=== PATIENT | male | born 1955 | race Caucasian/White ===

== ENCOUNTER 2016-09-22 21:26 | Emergency (ER) | payer BC, OTHER ==
[~2016-09-22] VITALS: Ht 193 cm; Wt 140.2 kg
[2016-09-22 21:30] VITALS: BP_SYST 155
--- NOTE | 2016-09-22 21:30 | NUR ---
Patient to ER bed 8 to gown for evaluation. Side rails up. Report given to MANUEL Chow.
--- NOTE | 2016-09-22 21:32 | NUR ---
Pt brought in by in stable condition. Pt able to ambulate to bed 8. Pt c/o right shoulder pain 10/10 s/p mechanical trip and fall onto the curb at 1800 this evening. Pt stated that he landed straight onto his right shoulder. Pt decreased ROM to right shoulder. Cap refill <2 sec. Pt admitted to drinking 2 beers prior to arrival. -KO -sob -chest pain. No acute distress noted at this time, will continue to monitor Addendum: 09/22/16 at 2159 by [email or web address] Obvious deformity noted to right shoulder
--- NOTE | 2016-09-22 21:51 | NUR ---
ER at bedside examining patient.
[2016-09-22] MEDS ORDERED: MORPHINE 4 MG/ML INJ. SYRINGE IVP ONE (22:00)
[2016-09-22] MEDS ORDERED: DIPHENHYDRAMINE INJ 50 MG/ML VIAL IVP ONE (22:00)
[2016-09-22 23:06] VITALS: BP_SYST 124
--- NOTE | 2016-09-22 23:06 | NUR ---
Patient given written and verbal discharge instructions and verbalizes understanding. ER MD Madrigal discussed with patient the results and treatment provided. Given copies of tests performed in ER. Patient in stable condition. ID arm band removed. IV catheter removed intact and dressing applied, no active bleeding. Rx of Soma, Ibuprofen 800 and Gilbert 5-325 given. Patient educated on pain management and to follow up with PMD. Pain Scale 3/10. Opportunity for questions provided and answered.
== END 2016-09-22 23:06 | disposition home or self-care (01) ==
LOC: SED 21:26
DX: S42.291A Other displaced fracture of upper end of right humerus, initial encounter for closed fracture (principal); Z88.0 Allergy status to penicillin; W01.198A Fall on same level from slipping, tripping and stumbling with subsequent striking against other object, initial encounter; Y93.89 Activity, other specified; Y99.8 Other external cause status; Y92.89 Other specified places as the place of occurrence of the external cause
CPT/HCPCS: 73030; 96374; 96375; 99284; J1200; J2270

== ENCOUNTER 2021-08-15 15:12 | Emergency (ER) | payer BC, OTHER, MEDICAID ==
[~2021-08-15] VITALS: Ht 190.5 cm; Wt 136.1 kg
[2021-08-15] MEDS ORDERED: HYDROcodone/ACETAMIN 10-325 MG TAB PO ONE (15:30)
[2021-08-15 16:15] LABS: BASOPHILS % (AUTO) 0.3 % (0.0-2.0); EOSINOPHILS % (AUTO) 0.2 % (0.0-4.0); HEMATOCRIT 44.2 % (36-54); HEMOGLOBIN 14.6 g/dL (14.0-18.0); LYMPHOCYTES # (AUTO) 1.6 K/uL (1.0-5.5); LYMPHOCYTES % (AUTO) 13.2 % (20.5-51.5); MEAN CORPUSCULAR HEMOGLOBIN 28 pg (27-31); MEAN CORPUSCULAR HGB CONC 33 % (32-36); MEAN CORPUSCULAR VOLUME 86 fL (79.0-98.0); MONOCYTES # (AUTO) 0.4 K/uL (0.0-1.0); MONOCYTES % (AUTO) 3.3 % (1.7-9.3); NEUTROPHILS # (AUTO) 9.8 K/uL (1.8-7.7); PLATELET COUNT (AUTO) 144 K/uL (130-430); RED BLOOD CELL COUNT(AUTO) 5.16 MIL/uL (4.2-6.2); RED CELL DISTRIBUTION WIDTH 13.5 % (9.0-15.0); WHITE BLOOD COUNT (AUTO) 11.8 K/uL (4.8-10.8)
[2021-08-15] MEDS ORDERED: MORPHINE 4 MG INJ. 4 MG/ML VIAL IVP PRN (16:15)
[2021-08-15 16:22] LABS: PROTHROMBIN TIME 10.8 SECS (9.5-12.5)
[2021-08-15 16:34] LABS: CALCIUM 8.7 mg/dL (8.4-11.0); CREATININE 0.9 mg/dL (0.55-1.30); POTASSIUM 3.9 mmol/L (3.5-5.1)
[2021-08-15 16:40] LABS: TOTAL BILIRUBIN 0.7 mg/dL (0.0-1.0)
--- NOTE | 2021-08-15 16:55 | NUR ---
patient will be tranferred to [facility] under dr. awlker. ETA 3 hours. family updated on plan of care patient receieved pain medication at this time.
[2021-08-15] MEDS ORDERED: MORPHINE 4 MG INJ. 4 MG/ML VIAL IM ONE (17:00)
--- NOTE | 2021-08-15 19:09 | NUR ---
RECEIVED REPORT FROM DAYSHIFT NURSE, AWAITING DISPOSITION. PT IN BED IN SUPINE POSITION, PT SPOUSE REQUESTING TRANSFER TO DIFFERENT FACILITY. MADE AWARE. WILL CONTINUE TO MONITOR CLOSELY
--- NOTE | 2021-08-15 19:42 | NUR ---
PT REQUESTING TO TRANSFER TO ANOTHER FACILITY FOR ORTHO SURGERY, NOTIFIED PT AND SPOUSE THAT THE FACILITY REQUESTED IS UNABLE TO ACCODATE AT THIS TIME. MD INFORMED PT AND SPOUSE OF POSSIBLE RISKS AND BENEFITS OF HIS LEAVING TO GO TO ANOTHER FACILITY TO RECIEVE TREATMENT AND REQUIRED HIP SURGERY. PT GIVEN OPPORTUNITY TO TALK IT OVER WITH SPOUSE, AND MD ANSWERED ALL QUESTIONS. PT VERBALIZED UNDERSTANDING.PT SIGNED AMA FORM, AND PROVIDED COPY. PT PROVIDED WITH COPY OF XRAY RESULTS. PT SPOUSE STATED SHE WILL TAKE HIM TO PREFERRED FACILITY FOR HIP SURGERY.
--- NOTE | 2021-08-15 20:11 | NUR ---
PT PROVIDED WITH DISCHARGE INSTRUCTIONS AND ENCOURAGED TO GO DIRECTLY TO PREFERRED FACILITY FOR TREATMENT. IV REMOVED FROM LEFT HAND, CATHETER INTACT. PT DISCHARGED IN STABLE CONDITION, PT UNABLE TO AMBULATE. ACCOMPANIED PT IN GURNEY TO CAR AND ASSISTED PT WITH SECURITY INTO VEHICLE. PT SPOUSE WILL DRIVE TO ANOTHER FACILITY.
[2021-08-15 20:50] VITALS: BP_SYST 165
== END 2021-08-15 20:30 | disposition left against medical advice (07) ==
LOC: SED 15:12
DX: S72.142A Displaced intertrochanteric fracture of left femur, initial encounter for closed fracture (principal); I10 Essential (primary) hypertension; Z88.0 Allergy status to penicillin; W01.198A Fall on same level from slipping, tripping and stumbling with subsequent striking against other object, initial encounter; Y93.89 Activity, other specified; Y92.89 Other specified places as the place of occurrence of the external cause; Y99.8 Other external cause status
CPT/HCPCS: 36415; 71045; 72170; 80053; 85025; 85610; 85730; 86886; 86900; 86901; 93005; 96372; 96374; 99285; J2270

== ENCOUNTER 2021-12-01 17:46 | Inpatient (IN) | payer BC, OTHER, MEDICAID ==
[~2021-12-01] VITALS: Ht 190.5 cm; Wt 129.8 kg
[2021-12-01 17:54] VITALS: BP_SYST 113
--- NOTE | 2021-12-01 18:13 | NUR ---
COVID SWAB DONE AND SENT TO LAB
--- NOTE | 2021-12-01 18:35 | NUR ---
Patient transported to radiology via WC, accompanied by STAFF.
[2021-12-01] MEDS ORDERED: LOSA50TA3 PO (18:44)
[2021-12-01] MEDS ORDERED: METO50TA7 PO (18:44)
[2021-12-01] MEDS ORDERED: WARF4TAB72 PO (18:44)
--- NOTE | 2021-12-01 18:50 | NUR ---
Placed in room 4 . Placed on cardiac nurse practitioner, blood pressure machine and pulse oximeter. To gown for exam. Side rails up. Report given to MANUEL TAVAREZ.
[2021-12-01 19:28] LABS: BASOPHILS # (AUTO) 0.1 K/uL (0.0-0.2); BASOPHILS % (AUTO) 1.7 % (0.0-2.0); EOSINOPHILS # (AUTO) 0.1 K/uL (0.0-0.4); HEMATOCRIT 42.4 % (36-54); HEMOGLOBIN 14.3 g/dL (14.0-18.0); LYMPHOCYTES # (AUTO) 2.3 K/uL (1.0-5.5); LYMPHOCYTES % (AUTO) 36.6 % (20.5-51.5); MEAN CORPUSCULAR HEMOGLOBIN 28 pg (27-31); MEAN CORPUSCULAR HGB CONC 34 % (32-36); MEAN CORPUSCULAR VOLUME 84 fL (79.0-98.0); MONOCYTES # (AUTO) 0.3 K/uL (0.0-1.0); MONOCYTES % (AUTO) 4.8 % (1.7-9.3); NEUTROPHILS # (AUTO) 3.6 K/uL (1.8-7.7); NEUTROPHILS % (AUTO) 55.9 % (40.0-70.0); PLATELET COUNT (AUTO) 109 K/uL (130-430); RED BLOOD CELL COUNT(AUTO) 5.06 MIL/uL (4.2-6.2); RED CELL DISTRIBUTION WIDTH 14.2 % (9.0-15.0); WHITE BLOOD COUNT (AUTO) 6.4 K/uL (4.8-10.8)
--- NOTE | 2021-12-01 19:30 | NUR ---
PT SENT BY PCP FOR UNCONTROLLED AFIB AND ADMISSION PT DENIES CP AT THIS TIME. CONNECTED TO MONITOR, SHOWING AFIB RATE OF 110S. RESP E/O. SKIN WDL. GCS15. AOX4.
[2021-12-01 19:41] LABS: ANION GAP 8 (5-15); CALCIUM 9.2 mg/dL (8.4-11.0); CHLORIDE 98 mmol/L (98-107); CREATININE 0.97 mg/dL (0.55-1.30); GLUCOSE 104 mg/dL (70-99); SODIUM SERUM 134 mmol/L (136-145); UREA NITROGEN, BLOOD 8 mg/dL (8-21)
[2021-12-01 19:50] LABS: ALANINE AMINOTRANSFERASE 10 U/L (12-78); ALBUMIN 3.6 g/dL (3.4-4.8); ASPARTATE AMINOTRANSFERASE 22 U/L (10-37); TOTAL BILIRUBIN 0.8 mg/dL (0.0-1.0)
[2021-12-01 19:53] LABS: GFR AFRICAN AMERICAN 100 mL/min (>90)
[2021-12-01 20:00] LABS: INR 1.7 (0.80-1.20); PROTHROMBIN TIME 17.2 SECS (9.5-12.5)
[2021-12-01] MEDS ORDERED: ASPIRIN 81 MG TAB.CHEW PO ONE (20:15)
--- NOTE | 2021-12-01 20:35 | NUR ---
Admit bed requested Patient will be admitted to care of Dr. Lopze Admitted to Telemetry Unit Diagnosis New Onset Atrial Flutter Inpatient (Yes or No) yes Observation (Yes or No) no Orientation concerns or request close to nursing station (Yes or No) no Covid Status pending On vent or bipap no Isolation requirements no Needs a sitter no From Home (Yes or if No enter name of facility) yes Requires Dialysis (Yes or No) no Med Rec Completed (Yes of No) yes
[2021-12-01] MEDS ORDERED: ASPIRIN 81 MG TAB.CHEW ONE (23:01)
--- NOTE | 2021-12-01 23:21 | NUR ---
REPORT TO NIYAH JACKSON BED 109A
[2021-12-01 23:28] VITALS: BP_SYST 133
--- NOTE | 2021-12-01 23:30 | NUR ---
PT ADMITTED TO TELE. PT AOX4 ABLE TO MAKE NEEDS KNOWN. RR EVEN AND UNLABORED ON RA. LUNGS SOUND CLEAR. BOWEL SOUNDS ACTIVE. PT ABLE TO AMBULATE WITH FWW. SKIN INTACT. PT EDUCATED TO USE CALL LIGHT IF HE NEEDS ASSISTANCE. BED ALARM ON. CALL LIGHT WITHIN REACH. WILL CONTINUE TO MONITOR.
[2021-12-02] VITALS: BP_SYST 133
[2021-12-02] MEDS ORDERED: WARFARIN SODIUM 2 MG TABLET PO ONE (00:15)
[2021-12-02] MEDS: METOPROLOL TARTRATE 25 MG TABLET PO SCH ×3 (00:32→21:13)
--- NOTE | 2021-12-02 03:45 | NUR ---
Consultation Paged Reason for Consultation: New Onset Atrial Flutter Was consult called: Y Person who was notified: Anh Consulting Physician: Dr. Benitez Ordering Physician: Dr. Lpoez
[2021-12-02 07:15] LABS: BASOPHILS % (AUTO) 0.6 % (0.0-2.0); EOSINOPHILS # (AUTO) 0.1 K/uL (0.0-0.4); EOSINOPHILS % (AUTO) 1.4 % (0.0-4.0); HEMATOCRIT 39.5 % (36-54); HEMOGLOBIN 13.5 g/dL (14.0-18.0); LYMPHOCYTES # (AUTO) 2.9 K/uL (1.0-5.5); MEAN CORPUSCULAR HEMOGLOBIN 29 pg (27-31); MEAN CORPUSCULAR HGB CONC 34 % (32-36); MEAN CORPUSCULAR VOLUME 84 fL (79.0-98.0); MONOCYTES # (AUTO) 0.6 K/uL (0.0-1.0); MONOCYTES % (AUTO) 8.5 % (1.7-9.3); NEUTROPHILS # (AUTO) 3.8 K/uL (1.8-7.7); NEUTROPHILS % (AUTO) 50.5 % (40.0-70.0); PLATELET COUNT (AUTO) 97 K/uL (130-430); RED BLOOD CELL COUNT(AUTO) 4.71 MIL/uL (4.2-6.2); RED CELL DISTRIBUTION WIDTH 14.5 % (9.0-15.0); WHITE BLOOD COUNT (AUTO) 7.5 K/uL (4.8-10.8)
[2021-12-02 07:55] VITALS: BP_SYST 136
--- NOTE | 2021-12-02 07:55 | NUR ---
INITIAL ROUNDS Received pt AAOx4, no s/s resp distress, no c/o palpitations or chest pain, no c/o pain or discomfort. Plan of care for the day reviewed with pt-pt verbalized his understanding. Pt stated he still uses his FWW due to recent left hip surgery. Pain management, disease process, skin and safety discussed-teach back done.
[2021-12-02 07:56] LABS: ALBUMIN 3.1 g/dL (3.4-4.8); CALCIUM 8.4 mg/dL (8.4-11.0); CREATININE 0.77 mg/dL (0.55-1.30); POTASSIUM 3.9 mmol/L (3.5-5.1)
[2021-12-02 08:01] LABS: INR 1.7 (0.80-1.20); PROTHROMBIN TIME 17.2 SECS (9.5-12.5)
[2021-12-02 16:55] VITALS: BP_SYST 135
[2021-12-02] MEDS: WARFARIN SODIUM 2 MG TABLET PO SCH (17:59)
--- NOTE | 2021-12-02 19:15 | NUR ---
CLOSING NOTE Pt sitting up in bed with no s/s resp distress, no c/o palpitations or chest pain, no c/o pain or discomfort. No changes, needs met, call light within reach.
[2021-12-02 20:00] VITALS: BP_SYST 141
[2021-12-02 22:40] LABS: BILIRUBIN,URINE NEGATIVE (NEGATIVE); BLOOD, URINE NEGATIVE (NEGATIVE); CLARITY/URINE CLEAR (CLEAR); GLUCOSE,URINE NEGATIVE (NEGATIVE); KETONES,URINE NEGATIVE (NEGATIVE); LEUKOCYTE ESTERASE ,URINE NEGATIVE (NEGATIVE); NITRITE, URINE NEGATIVE (NEGATIVE); PH,URINE 6.5 (5.0-8.0); PROTEIN URINE NEGATIVE (NEGATIVE); UROBILINOGEN,URINE 0.2 (0.2-1.0)
[2021-12-02 22:50] LABS: COLOR,URINE STRAW (YELLOW)
[2021-12-03] VITALS: BP_SYST 137
[2021-12-03 08:00] VITALS: BP_SYST 119
[2021-12-03] MEDS: METOPROLOL TARTRATE 25 MG TABLET PO SCH (08:50)
[2021-12-03 09:59] LABS: INR 1.9 (0.80-1.20); PROTHROMBIN TIME 19.3 SECS (9.5-12.5)
[2021-12-03 12:00] VITALS: BP_SYST 126
[2021-12-03 16:00] VITALS: BP_SYST 122
[2021-12-03 17:02] VITALS: BP_SYST 122
[2021-12-03] MEDS: WARFARIN SODIUM 2 MG TABLET PO SCH (17:15)
== END 2021-12-03 17:23 | disposition home or self-care (01) | DRG 310 ==
LOC: SED 17:46 → STU 20:15
PROVIDERS: ADMIT Family Medicine; ATTEND Family Medicine
DX: I48.92 Unspecified atrial flutter (principal); E66.01 Morbid (severe) obesity due to excess calories; I10 Essential (primary) hypertension; I48.91 Unspecified atrial fibrillation; Z96.611 Presence of right artificial shoulder joint; Z96.652 Presence of left artificial knee joint; Z20.822 Contact with and (suspected) exposure to COVID-19; Z79.899 Other long term (current) drug therapy; Z86.718 Personal history of other venous thrombosis and embolism; Z87.81 Personal history of (healed) traumatic fracture; Z79.01 Long term (current) use of anticoagulants; Z68.35 Body mass index [BMI] 35.0-35.9, adult
CPT/HCPCS: 36415; 71045; 80053; 81003; 83880; 84484; 85025; 85610-TC; 85730-TC; 93005; 93306; 99285; G0378

== ENCOUNTER 2022-03-01 16:14 | Inpatient (IN) | payer OTHER, MEDICAID ==
[~2022-03-01] VITALS: Ht 188 cm; Wt 116.6 kg
[~2022-03-01 16:14] MED LIST: LOSA50TA3 PO; METO50TA7 PO; WARF4TAB72 PO
[2022-03-01 17:22] VITALS: BP_SYST 134
[2022-03-01] MEDS ORDERED: CEFEPIME 2 GM in D5W 100 ML IV ONE (19:00)
[2022-03-01 19:35] LABS: BASOPHILS # (AUTO) 0.1 K/uL (0.0-0.2); BASOPHILS % (AUTO) 1.3 % (0.0-2.0); EOSINOPHILS % (AUTO) 0.2 % (0.0-4.0); HEMATOCRIT 34.2 % (36-54); HEMOGLOBIN 11.1 g/dL (14.0-18.0); LYMPHOCYTES # (AUTO) 0.6 K/uL (1.0-5.5); LYMPHOCYTES % (AUTO) 8.1 % (20.5-51.5); MEAN CORPUSCULAR HEMOGLOBIN 27 pg (27-31); MEAN CORPUSCULAR HGB CONC 33 % (32-36); MEAN CORPUSCULAR VOLUME 82 fL (79.0-98.0); MONOCYTES # (AUTO) 0.6 K/uL (0.0-1.0); MONOCYTES % (AUTO) 7.3 % (1.7-9.3); NEUTROPHILS # (AUTO) 6.4 K/uL (1.8-7.7); NEUTROPHILS % (AUTO) 83.1 % (40.0-70.0); PLATELET COUNT (AUTO) 130 K/uL (130-430); RED BLOOD CELL COUNT(AUTO) 4.19 MIL/uL (4.2-6.2); RED CELL DISTRIBUTION WIDTH 17.4 % (9.0-15.0); WHITE BLOOD COUNT (AUTO) 7.7 K/uL (4.8-10.8)
[2022-03-01] MEDS ORDERED: ONDANSETRON 4 MG ODT TAB PO ONE (19:45)
[2022-03-01 20:03] LABS: ALBUMIN 3.2 g/dL (3.4-4.8); CALCIUM 9.5 mg/dL (8.4-11.0); CREATININE 6.9 mg/dL (0.55-1.30); POTASSIUM 3.2 mmol/L (3.5-5.1)
--- NOTE | 2022-03-01 20:10 | NUR ---
67 y/o M, ambulatory from home with c/o known hip infection currently on cefepime and daptomycin. Pt states he's lost his insurance and has been unable to take last dose of his antibiotics and was sent here for admission to continue antibiotics. Reports nausea and weakness. [facility] diabetes. Addendum: 03/02/22 at 0557 by [email or web address] Left hip*
--- NOTE | 2022-03-01 20:50 | NUR ---
ADMISSION ORDERS PLACED
--- NOTE | 2022-03-01 23:12 | NUR ---
COVID collected and sent.
--- NOTE | 2022-03-01 23:45 | NUR ---
Pt resting in bed, no acute signs of distress. Breathing adequately on RA. VSS. at bedside.
--- NOTE | 2022-03-01 23:59 | NUR ---
CHARTED ON WRONG PT
[2022-03-02] MEDS ORDERED: cefOXitin SODIUM 2 GM/VIAL (MEFOXIN) ONE (05:51)
--- NOTE | 2022-03-02 05:58 | NUR ---
Admit bed requested Patient will be admitted to care of . Admitted to MED SURG unit. Diagnosis: RENAL FAILURE Inpatient (Yes or No) Y Observation (Yes or No) Y Orientation concerns or request close to nursing station (Yes or No) N Covid Status: NEGATIVE From Home (Yes or if No enter name of facility) Y Requires Dialysis (Yes or No) Y
--- NOTE | 2022-03-02 06:01 | NUR ---
600 ml of urine emptied from FC.
[2022-03-02] MEDS ORDERED: CEFE2PIG2 IV (06:15)
--- NOTE | 2022-03-02 08:16 | NUR ---
COVID TEST SAMPLE OBTAINED/CATALINA TAKEN TO LAB LABELED
--- NOTE | 2022-03-02 09:10 | NUR ---
Patient will be admitted to care of DR DEE. Admitted to unit. Will go to room . Belongings list completed. Complete and up to date summary report printed. SBAR report to be given at bedside TO MANUEL CARDOSO with opportunity for questions.
--- NOTE | 2022-03-02 09:30 | NUR ---
0930: Patient alert and oriented x 3, christianne at bedside with him. Patient to hospital from nursing facility for DE[facility], patient arrived with f/c to gravity, vss, patient has incision on left hip that may be infected, redressed and cleaned, sutures are dry and intact and incision is reddened but not painful. patient has right chest portacath, hemodialysis at bedside and dressing done. will continue to monitor patient. 1200: patient picc line on right forearm redressed at this time.
[2022-03-02] MEDS ORDERED: NEPHROVITE, (FOLIC ACID/VITAMIN B COMP W-C 1 TAB) PO ONE (09:45)
[2022-03-02] MEDS ORDERED: CALCIUM ACETATE 667 MG CAP PO ONE (09:45)
--- NOTE | 2022-03-02 10:09 | NUR ---
Dr. Palacios notified for admission orders.
--- NOTE | 2022-03-02 10:12 | NUR ---
CONSULT NEPHROLOGY ESRD DR LY,SILVIO [phone] S/W [facility] OFFICE
[2022-03-02] MEDS: CALCIUM ACETATE 667 MG CAP PO SCH ×2 (12:00→18:08)
[2022-03-02 14:32] VITALS: BP_SYST 120
[2022-03-02] MEDS: CEFEPIME 2 GM in D5W 100 ML IV SCH (15:00)
[2022-03-02 16:00] VITALS: BP_SYST 168
[2022-03-02 20:00] VITALS: BP_SYST 157
[2022-03-02] MEDS: HEPARIN SODIUM,PORCINE 5,000 UNITS/ML VIAL SUBCUT SCH (21:14)
[2022-03-03 00:30] VITALS: BP_SYST 159
[2022-03-03] MEDS: CALCIUM ACETATE 667 MG CAP PO SCH ×3 (08:33→19:22)
[2022-03-03] MEDS: NEPHROVITE, (FOLIC ACID/VITAMIN B COMP W-C 1 TAB) PO SCH (08:34)
[2022-03-03] MEDS: HEPARIN SODIUM,PORCINE 5,000 UNITS/ML VIAL SUBCUT SCH ×2 (08:35→21:29)
[2022-03-03 08:45] LABS: CALCIUM 9.5 mg/dL (8.4-11.0); CREATININE 6.41 mg/dL (0.55-1.30); POTASSIUM 3.2 mmol/L (3.5-5.1)
--- NOTE | 2022-03-03 09:30 | NUR ---
DR. SOLIS PAGED FOR POTASSIUM 3.2. WAITING FOR CALL BACK
--- NOTE | 2022-03-03 10:41 | NUR ---
DR. SOLIS RETURNED CALL. POTASSIUM 20MEQ PO X 1 ORDERED A THIS TIME
[2022-03-03] MEDS ORDERED: POTASSIUM CHLORIDE 20 MEQ TAB.PRT.SR PO ONE (10:45)
[2022-03-03 14:05] VITALS: BP_SYST 118
[2022-03-03 16:00] VITALS: BP_SYST 123
--- NOTE | 2022-03-03 16:30 | NUR ---
ABDUCTOR PILLOW ORDERED FOR PATIENT AT THIS TIME, SPOKE TO OR AND WILL ADMINISTER ONCE ORDER ENTERED.
--- NOTE | 2022-03-03 16:54 | NUR ---
ABDUCTOR PILLOW AT BEDSIDE WILL ENDORSE TO ONLY PUT ON PATIENT AT NIGHT
[2022-03-03 19:04] VITALS: BP_SYST 156
--- NOTE | 2022-03-03 20:00 | NUR ---
Opening Patient resting in bed, no complaint of pain or sign of distress. Incision to left hip clean and dry, no redness noted, stitches in place. Call light in reach, bed alarm on.
[2022-03-03 20:30] VITALS: BP_SYST 135
[2022-03-04 00:43] VITALS: BP_SYST 148
--- NOTE | 2022-03-04 01:04 | NUR ---
Patient complaining of return of pain after [place]. BP also elevated at 165/87. Informed Dr. Arevalo of patient's BP and report of pain. Received order to increase dose of [place] with one time dose now, and for hydralazine IVP PRN for SBP>160 if BP doesn't come down with pain medication. Addendum: 03/04/22 at 0117 by Jayashree Boudreaux RN Disregard note, should be for different patient.
--- NOTE | 2022-03-04 02:43 | NUR ---
Urine sample collected and sent to lab
[2022-03-04 03:48] LABS: BILIRUBIN,URINE NEGATIVE (NEGATIVE); BLOOD, URINE 3+ (NEGATIVE); COLOR,URINE YELLOW (YELLOW); GLUCOSE,URINE NEGATIVE (NEGATIVE); KETONES,URINE NEGATIVE (NEGATIVE); LEUKOCYTE ESTERASE ,URINE TRACE (NEGATIVE); NITRITE, URINE NEGATIVE (NEGATIVE); PROTEIN URINE 2+ (NEGATIVE); UROBILINOGEN,URINE 0.2 (0.2-1.0)
[2022-03-04 03:49] LABS: CLARITY/URINE HAZY (CLEAR)
[2022-03-04 04:30] LABS: BACTERIA,URINE RARE /HPF (None Seen); WBC,URINE 0-3 /HPF (0-3)
--- NOTE | 2022-03-04 05:18 | NUR ---
Rounds Patient asleep in bed, unlabored breathing on room air. Abductor pillow in place. Joseph catheter in place draining yellow urine. Call light in reach, bed alarm on.
--- NOTE | 2022-03-04 05:54 | NUR ---
CONSULT: CONSULT CALLED FOR LEONA MILLER I SPOKE TO NETTIE GARCIA REASON FOR CONSULT: BLADER MASS REQUESTING CONSULT: DR. BAKER BIZTALK SOFTWARE DEVELOPER PHONE NUMER: [phone]
--- NOTE | 2022-03-04 07:20 | NUR ---
OPENING NOTE RECEIVED SBAR FROM REED OR WIND INSTRUMENT TUNER NURSE. PT IN BED, RESPIRATIONS EVEN, REGULAR, AND UNLABORED. NO COMPLAINT OF PAIN OR DISCOMFORT. BED IS LOCKED AND AT LOW POSITION. WILL CONTINUE TO MONITOR.
[2022-03-04 07:46] LABS: BASOPHILS % (AUTO) 0.2 % (0.0-2.0); HEMATOCRIT 31.5 % (36-54); LYMPHOCYTES # (AUTO) 0.8 K/uL (1.0-5.5); LYMPHOCYTES % (AUTO) 15.6 % (20.5-51.5); MEAN CORPUSCULAR VOLUME 82 fL (79.0-98.0); MONOCYTES # (AUTO) 0.7 K/uL (0.0-1.0); MONOCYTES % (AUTO) 13.3 % (1.7-9.3); NEUTROPHILS # (AUTO) 3.8 K/uL (1.8-7.7); NEUTROPHILS % (AUTO) 70.9 % (40.0-70.0); PLATELET COUNT (AUTO) 109 K/uL (130-430); RED BLOOD CELL COUNT(AUTO) 3.83 MIL/uL (4.2-6.2); RED CELL DISTRIBUTION WIDTH 17.1 % (9.0-15.0); WHITE BLOOD COUNT (AUTO) 5.4 K/uL (4.8-10.8)
--- NOTE | 2022-03-04 07:46 | NUR ---
Closing Patient resting in bed, unlabored breathing on room air, no complaint of pain. Abductor pillow in place throughout night. Endorsed to oncoming nurse.
[2022-03-04 07:53] LABS: ALBUMIN 2.5 g/dL (3.4-4.8); CALCIUM 9.2 mg/dL (8.4-11.0); CREATININE 7.45 mg/dL (0.55-1.30); PHOSPHORUS 4.6 mg/dL (2.7-4.5); POTASSIUM 3.4 mmol/L (3.5-5.1); TOTAL BILIRUBIN 0.7 mg/dL (0.0-1.0)
[2022-03-04 08:00] VITALS: BP_SYST 163
[2022-03-04] MEDS: CALCIUM ACETATE 667 MG CAP PO SCH ×3 (08:00→17:44)
--- NOTE | 2022-03-04 08:15 | NUR ---
PHYSICAL THERAPY EVALUATION WILL HAVE TO BE LATER TODAY OR TOMORROW. PATIENT IS JUST STARTING DIALYSIS TREATMENT. LONG CONVERSATION WITH THE PATIENT REVEALS THAT HE IS ALLOWED TO PERFORM WBAT ON THE LLE. HE IS FOLLOWING POSTERIOR THR PRECAUTIONS. RECENTLY RETURNED HOME FROM SNF. WILL NEED FURTHER PT AND POSSIBLY HOME HEALTH PT.
[2022-03-04] MEDS: NEPHROVITE, (FOLIC ACID/VITAMIN B COMP W-C 1 TAB) PO SCH (09:00)
[2022-03-04] MEDS: HEPARIN SODIUM,PORCINE 5,000 UNITS/ML VIAL SUBCUT SCH (09:00)
[2022-03-04] MEDS ORDERED: HEPARIN SODIUM,PORCINE 5,000 UNITS/ML VIAL ONE (10:13)
[2022-03-04] MEDS ORDERED: HEPARIN SODIUM,PORCINE 5,000 UNITS/ML VIAL MC ONE (10:15)
[2022-03-04 12:00] VITALS: BP_SYST 129
[2022-03-04 12:19] LABS: HEMOGLOBIN 10.4 g/dL (14.0-18.0)
[2022-03-04 12:20] LABS: MEAN CORPUSCULAR HEMOGLOBIN 27 pg (27-31); MEAN CORPUSCULAR HGB CONC 33 % (32-36)
--- NOTE | 2022-03-04 12:30 | NUR ---
lunch patients brought chicken and tortillas for the patient. educated both patient and regarding the indications of proper diet and to not bring outside food for the patient. Also patient gave his untouched lunch to his room mate. Educated patient and his that each patient has own special diet needs and to not provide any food to any other patient. Both patient and verbalized understanding.
[2022-03-04] MEDS: CEFEPIME 2 GM in D5W 100 ML IV SCH (15:52)
[2022-03-04 16:00] VITALS: BP_SYST 155
--- NOTE | 2022-03-04 18:06 | NUR ---
Sutures Removed: Orders received by Dr. Lopez for removal of sutures from left hip THR site. Upon assessment, incision was approximated, with blue sutures intact (17 total). Sutures were removed from incision and upon inspection, 17 discarded sutures were in the suture tray. Site was cleansed with normal saline. Betadine was applied to incision site. Incision site was approximated upon inspection. Attending nurse to cover site with composite/island dressings. Recommend: Apply Betadine to incision site. Cover with composite/island dressings. Perform site care daily, and as needed for dressing soiling or dislodgment. Will inspect site in 3 days to determine if dressing is still needed.
[2022-03-04 18:10] VITALS: BP_SYST 129
--- NOTE | 2022-03-04 18:30 | NUR ---
lowe/ picc line removed for discharge ok per Dr Lopez. both removed with no distress by patient. Patient denies any pain or discomfort
[2022-03-04 19:15] LABS: CHLORIDE,URINE RANDOM 89 mmol/L (55-125)
--- NOTE | 2022-03-04 19:42 | NUR ---
D/C Patient Patient given medication reconciliation form and D/C instructions. Exit Care provided. Patient verbalized understanding. MD discussed with patient the results and treatment provided. Ambulatory with steady gait for discharge to home. Patient in stable condition, ID band removed. IV catheter removed, intact and dressing applied, no active bleeding. Patient educated on pain management. All belongings sent with patient. Patient taken out to awaiting car via wheel chair
== END 2022-03-04 19:42 | disposition home or self-care (01) | DRG 559 ==
LOC: SED 16:14 → SMU 20:38
PROVIDERS: ADMIT Family Medicine; ATTEND Family Medicine
PROC: 5A1D70Z Performance of Urinary Filtration, Intermittent, Less than 6 Hours Per Day (ICD-10-PCS; principal; 2022-03-02)
DX: T84.52XA Infection and inflammatory reaction due to internal left hip prosthesis, initial encounter (principal); N18.6 End stage renal disease; E87.1 Hypo-osmolality and hyponatremia; I12.0 Hypertensive chronic kidney disease with stage 5 chronic kidney disease or end stage renal disease; N17.9 Acute kidney failure, unspecified; D64.9 Anemia, unspecified; Z96.649 Presence of unspecified artificial hip joint; Z20.822 Contact with and (suspected) exposure to COVID-19; Y83.8 Other surgical procedures as the cause of abnormal reaction of the patient, or of later complication, without mention of misadventure at the time of the procedure; Z86.711 Personal history of pulmonary embolism; Z86.718 Personal history of other venous thrombosis and embolism; Z88.0 Allergy status to penicillin; Y92.89 Other specified places as the place of occurrence of the external cause
CPT/HCPCS: 36415; 73502; 76376; 76770; 80048; 80053; 81000; 82435; 82570; 83735; 83970; 84100; 84302; 85025; 87081; 90935; 96365; 99285; J0692; J0694; J1644; J7060

== ENCOUNTER 2022-03-05 16:01 | Inpatient (IN) | payer OTHER, MEDICAID ==
[~2022-03-05] VITALS: Ht 190.5 cm; Wt 115.2 kg
[~2022-03-05 16:01] MED LIST changes: +CEFE2PIG2 IV; -LOSA50TA3 PO
[2022-03-05 16:02] VITALS: BP_SYST 144
--- NOTE | 2022-03-05 16:02 | NUR ---
BROUGHT IN BY [facility], PLACED IN BED #[address] HSU CALLED TO BEDSIDE FOR EVALUATION, REPORT GIVEN TO BEATRICE
--- NOTE | 2022-03-05 16:07 | NUR ---
CODE STROKE INITIATED BY DR HSU.
--- NOTE | 2022-03-05 16:10 | NUR ---
TAKEN TO RADIOLOGY VIA STRETCHER.
--- NOTE | 2022-03-05 16:15 | NUR ---
Triple Lumen CVC placed into Left Jugular by Dr. Salzaar
--- NOTE | 2022-03-05 16:20 | NUR ---
Xray at bedside to confirm CVC placement
[2022-03-05] MEDS ORDERED: iohexoL 300 mgI/mL, 150 ML INFUS..BTL IV ONE (16:23)
--- NOTE | 2022-03-05 16:25 | NUR ---
Labs drawn and sent to lab
[2022-03-05] MEDS ORDERED: KETAMINE HCL 500 MG/10 ML VIAL ONE (17:13)
[2022-03-05] MEDS ORDERED: KETAMINE HCL 500 MG/10 ML VIAL IM ONE (17:45)
[2022-03-05 17:50] LABS: BASOPHILS % (AUTO) 0.1 % (0.0-2.0); HEMATOCRIT 32.4 % (36-54); LYMPHOCYTES # (AUTO) 1.3 K/uL (1.0-5.5); LYMPHOCYTES % (AUTO) 18.7 % (20.5-51.5); MEAN CORPUSCULAR VOLUME 81 fL (79.0-98.0); MONOCYTES # (AUTO) 0.9 K/uL (0.0-1.0); MONOCYTES % (AUTO) 13.6 % (1.7-9.3); NEUTROPHILS # (AUTO) 4.6 K/uL (1.8-7.7); NEUTROPHILS % (AUTO) 67.6 % (40.0-70.0); PLATELET COUNT (AUTO) 86 K/uL (130-430); RED BLOOD CELL COUNT(AUTO) 3.99 MIL/uL (4.2-6.2); RED CELL DISTRIBUTION WIDTH 16.9 % (9.0-15.0); WHITE BLOOD COUNT (AUTO) 6.8 K/uL (4.8-10.8)
[2022-03-05] MEDS ORDERED: MIDAZOLAM HCL 5 MG/5 ML VIAL ONE (17:55)
[2022-03-05] MEDS ORDERED: MIDAZOLAM HCL 5 MG/5 ML VIAL IVP ONE (18:00)
[2022-03-05 18:05] LABS: ANION GAP 13 (5-15); CALCIUM 9.4 mg/dL (8.4-11.0); CHLORIDE 90 mmol/L (98-107); GLUCOSE 134 mg/dL (70-99); POTASSIUM 3.3 mmol/L (3.5-5.1); UREA NITROGEN, BLOOD 32 mg/dL (8-21)
[2022-03-05 18:12] LABS: GFR AFRICAN AMERICAN 9 mL/min (>90)
[2022-03-05] MEDS ORDERED: LABETALOL HCL 20 MG/4 ML CARTRIDGE IVP ONE ×2 (18:15)
--- NOTE | 2022-03-05 18:15 | NUR ---
PRN given per order for BP
[2022-03-05 18:19] LABS: TOTAL BILIRUBIN 0.8 mg/dL (0.0-1.0)
[2022-03-05 18:20] LABS: ALANINE AMINOTRANSFERASE 13 U/L (12-78); ALBUMIN 3.1 g/dL (3.4-4.8); ASPARTATE AMINOTRANSFERASE 23 U/L (10-37)
[2022-03-05 18:23] LABS: ACETAMINOPHEN < 1 ug/mL (1-30); ALCOHOL, BLOOD < 3 mg/dL (<10); C-REACTIVE PROTEIN QUANT 2.1 mg/dL (0-0.5)
[2022-03-05 18:27] LABS: ACETONE, SERUM TRACE (NEGATIVE)
--- NOTE | 2022-03-05 18:37 | NUR ---
Covid swab collected and sent to lab
[2022-03-05 18:55] LABS: FREE T4 (FREE THYROXINE) 1.3 ng/dL (0.6-1.6); THYROID STIMULATING HORMONE 1.7 uIu/mL (0.34-4.82)
[2022-03-05 19:08] LABS: INR 1.1 (0.80-1.20); PROTHROMBIN TIME 11.4 SECS (9.5-12.5)
--- NOTE | 2022-03-05 19:13 | NUR ---
Report given to incoming NOC RN, all cares assumed.
[2022-03-05] MEDS ORDERED: HALOPERIDOL LACTATE 5 MG/ML VIAL IVP ONE (21:00)
[2022-03-05] MEDS ORDERED: DIPHENHYDRAMINE INJ 50 MG/ML VIAL IVP ONE (21:00)
--- NOTE | 2022-03-05 22:18 | NUR ---
RN TOOK VERBAL ORDERS FROM DR QUINTANILLA MED TELE DX ACUTE ENCEPALOPATHY RENAL DIET RESTRAINED 24 HOURS 2 POINT NEURO CONSULT BY Gale JOHNSON
--- NOTE | 2022-03-05 22:26 | NUR ---
Admit bed requested Patient will be admitted to care of . Admitted to TELE unit. Diagnosis ACUTE ENCEPHALOPATHY Inpatient (Yes or No) YES Observation (Yes or No) NO Orientation concerns or request close to nursing station (Yes or No) YES Covid Status NEGATIVE On vent or bipap NO Isolation requirements NO Needs a sitter NO From Home (Yes or if No enter name of facility) [facility] Requires Dialysis (Yes or No) NO Med Rec Completed (Yes of No)NO
--- NOTE | 2022-03-05 23:45 | NUR ---
ADMIT NOTE Received pt from ER at 2345 and received report from MANUEL Carmichael. Pt is assigned bed 121A and will be under direct observation with nurse as a sitter. Pt is stable, vital signs WNL, and does not appear to have pain or discomfort. Pt 's Remedios is bedside. Admission process and safety measures have been initiated.
--- NOTE | 2022-03-06 00:08 | NUR ---
RN TOOK PT ON MED TELE FLOOR 121-A, GAVE REPORT TO GENEVA JACKSON FOR CONTINUITY OF CARE.
--- NOTE | 2022-03-06 00:30 | NUR ---
PAGED PAGED DOCTOR [place]
--- NOTE | 2022-03-06 01:10 | NUR ---
CRITICAL LAB Lab called with critical lab value: Troponin 1207 Dr. Navarrete was called and notified of value at 0115. Order: STAT consult with New Home Sales Consultant Eli Urine Analysis: straight catheter if needed but do not wake patient if resting Diet: Renal with special precautions d/t patient vomiting.
[2022-03-06] MEDS ORDERED: ONDANSETRON HCL 4 MG/2 ML VIAL IVP PRN (01:30)
[2022-03-06] MEDS ORDERED: CEFEPIME 1 GM in D5W 50 ML IV SCH (01:30)
--- NOTE | 2022-03-06 04:51 | NUR ---
CONSULTATION PAGED/CALLED Reason for Consultation: INFECTED JOINT Person Who was Notified: AUSTEN Consulting Physician: CONSTANCE Logistics Project Manager Specialty: Ordering Physician: DWIGHT
--- NOTE | 2022-03-06 05:06 | NUR ---
CONSULTATION PAGED/CALLED Reason for Consultation: ESRD Person Who was Notified: AUSTEN Consulting Physician: DR WHIT CONNER IS ELECTRICAL CHECKOUT MECHANIC Help Desk Consultant Specialty: Ordering Physician: DWIGHT
[2022-03-06 06:00] VITALS: BP_SYST 152
--- NOTE | 2022-03-06 06:07 | NUR ---
CONSULTATION PAGED/CALLED Reason for Consultation: ALTERTED MENTAL STATUS Person Who was Notified: DR JOHNSON Consulting Physician:DR JOHNSON Machinist Linotype Specialty: Ordering Physician: DWIGHT
--- NOTE | 2022-03-06 06:42 | NUR ---
Spoke w/ Dr Navarrete for neuro consult clarification, stated to dc tele neuro and to consult w/ Dr Johns
[2022-03-06 08:00] VITALS: BP_SYST 146
--- NOTE | 2022-03-06 08:00 | NUR ---
Recd pt a/ox4, denies CP, denies SOB, Afib on the monitor at 82. Provided pt with breakfast, pt tolerated well. Right chestwall with demetra caht and left subclavian TLC with drsg clean and dry. AM assessment done and charted.
[2022-03-06 08:13] LABS: BASOPHILS % (AUTO) 0.1 % (0.0-2.0); HEMATOCRIT 33.7 % (36-54); LYMPHOCYTES # (AUTO) 0.8 K/uL (1.0-5.5); LYMPHOCYTES % (AUTO) 10.5 % (20.5-51.5); MEAN CORPUSCULAR VOLUME 82 fL (79.0-98.0); MONOCYTES # (AUTO) 0.5 K/uL (0.0-1.0); MONOCYTES % (AUTO) 7.4 % (1.7-9.3); NEUTROPHILS # (AUTO) 6.1 K/uL (1.8-7.7); PLATELET COUNT (AUTO) 90 K/uL (130-430); RED BLOOD CELL COUNT(AUTO) 4.13 MIL/uL (4.2-6.2); RED CELL DISTRIBUTION WIDTH 17.3 % (9.0-15.0); WHITE BLOOD COUNT (AUTO) 7.4 K/uL (4.8-10.8)
[2022-03-06 08:25] LABS: CALCIUM 9.7 mg/dL (8.4-11.0); POTASSIUM 4.3 mmol/L (3.5-5.1)
[2022-03-06 08:43] LABS: TOTAL BILIRUBIN 0.8 mg/dL (0.0-1.0)
[2022-03-06 08:46] LABS: CREATININE 8.1 mg/dL (0.55-1.30)
[2022-03-06] MEDS: HEPARIN SODIUM,PORCINE 5,000 UNITS/ML VIAL SUBCUT SCH ×2 (09:00→10:13)
--- NOTE | 2022-03-06 09:00 | NUR ---
Pt bathed and gown and linen changed.
[2022-03-06] MEDS: CEFEPIME 1 GM in D5W 50 ML IV SCH (10:12)
[2022-03-06] MEDS: ASPIRIN 81 MG TAB.CHEW PO SCH (10:14)
[2022-03-06] MEDS: PANTOPRAZOLE SODIUM 40 MG/VIAL (PROTONIX) IVP SCH (10:14)
[2022-03-06] MEDS: METOPROLOL SUCCINATE 50 MG TAB.SR.24H (TOPROL XL) PO SCH (10:16)
--- NOTE | 2022-03-06 10:30 | NUR ---
Dr Benitez at the bedside, assessing pt. at the bedside and spoke to Dr Benitez in detail regarding treatment plan, pt and family aware of plan of care. DR Benitez aware of am labs including troponin 3169. Continue to monitor pt.
[2022-03-06 12:00] VITALS: BP_SYST 132
--- NOTE | 2022-03-06 12:00 | NUR ---
DR Arevalo at the bedside, spoke to pt and , supervior aware of arranging for hemodialysis today. will continue to monitor.
--- NOTE | 2022-03-06 13:00 | NUR ---
Moved pt from 121A to 119B to provide a quieter environment per pt and request. Tooling Mechanic aware.
[2022-03-06 15:44] VITALS: BP_SYST 148
[2022-03-06] MEDS ORDERED: HEPARIN SODIUM,PORCINE 5,000 UNITS/ML VIAL ONE (17:20)
--- NOTE | 2022-03-06 18:24 | NUR ---
HEMODIALYSIS COMPLETED, 3.2 LITERS OUT, VSS. PROVIDED PT WITH DINNER TRAY.
--- NOTE | 2022-03-06 19:15 | NUR ---
OPENING NOTE PT IS SEMI FOWLERS IN BED WATCHING TV. NO APPARENT SIGNS OF DISTRESS NOTED AT THIS TIME. BED IS IN LOWEST POSITION WITH SAFETY PRECAUTIONS IN PLACE. CALL LIGHT IS WITHIN REACH, PT EDUCATED ON HOW TO USE IT. ALL NEEDS MET AT THIS TIME
[2022-03-06 20:00] VITALS: BP_SYST 107
[2022-03-06] MEDS: APIXABAN 2.5 MG TABLET PO SCH (20:20)
[2022-03-07] VITALS: BP_SYST 112
--- NOTE | 2022-03-07 07:15 | NUR ---
CLOSING NOTE PT IS LYING IN BED WITH EYES CLOSED. NO APPARENT SIGNS OF DISTRESS NOTED AT THIS TIME. BED IS IN THE LOWEST POSITION WITH FALL AND SAFETY PRECAUTIONS IN PLACE. CALL LIGHT IS WITHIN REACH
[2022-03-07 07:28] LABS: BASOPHILS % (AUTO) 0.4 % (0.0-2.0); LYMPHOCYTES # (AUTO) 1.2 K/uL (1.0-5.5); LYMPHOCYTES % (AUTO) 24.4 % (20.5-51.5); MEAN CORPUSCULAR VOLUME 82 fL (79.0-98.0); MONOCYTES # (AUTO) 0.5 K/uL (0.0-1.0); MONOCYTES % (AUTO) 10.9 % (1.7-9.3); NEUTROPHILS # (AUTO) 3.2 K/uL (1.8-7.7); NEUTROPHILS % (AUTO) 64.3 % (40.0-70.0); PLATELET COUNT (AUTO) 76 K/uL (130-430); RED BLOOD CELL COUNT(AUTO) 4.16 MIL/uL (4.2-6.2); RED CELL DISTRIBUTION WIDTH 17.3 % (9.0-15.0)
[2022-03-07 07:32] LABS: CALCIUM 8.5 mg/dL (8.4-11.0); CREATININE 7.47 mg/dL (0.55-1.30); POTASSIUM 3.7 mmol/L (3.5-5.1)
[2022-03-07 07:46] LABS: ALBUMIN 2.9 g/dL (3.4-4.8); THYROID STIMULATING HORMONE 1.29 uIu/mL (0.36-3.74); TOTAL BILIRUBIN 0.6 mg/dL (0.0-1.0)
[2022-03-07 07:57] VITALS: BP_SYST 118
[2022-03-07 08:05] VITALS: BP_SYST 141
[2022-03-07] MEDS: ASPIRIN 81 MG TAB.CHEW PO SCH (09:15)
[2022-03-07] MEDS: APIXABAN 2.5 MG TABLET PO SCH ×2 (09:15→21:37)
[2022-03-07] MEDS: PANTOPRAZOLE SODIUM 40 MG/VIAL (PROTONIX) IVP SCH (09:15)
[2022-03-07] MEDS: METOPROLOL SUCCINATE 50 MG TAB.SR.24H (TOPROL XL) PO SCH (09:17)
[2022-03-07] MEDS: CEFEPIME 1 GM in D5W 50 ML IV SCH (10:15)
[2022-03-07 13:25] VITALS: BP_SYST 129
--- NOTE | 2022-03-07 15:06 | NUR ---
Medical Records sent to [facility] phone [phone]/ FAX [phone]
[2022-03-07 18:04] VITALS: BP_SYST 121
--- NOTE | 2022-03-07 19:15 | NUR ---
OPENING NOTES Patient resting in bed - no s/s pain or distress noted. Respirations even and unlabored - head of bed elevated. IV site patent - no s/s redness, infection, or infiltration. Bed locked and in lowest position. Call light within reach - bed alarm on.
[2022-03-07] MEDS ORDERED: predniSONE 20 MG TABLET PO ONE (19:30)
[2022-03-07 20:00] VITALS: BP_SYST 132
[2022-03-07] MEDS: DAPTOmycin 500 MG in NS 50 ML IV SCH (21:38)
[2022-03-08] VITALS: BP_SYST 137
[2022-03-08 08:00] VITALS: BP_SYST 147
[2022-03-08] MEDS: ASPIRIN 81 MG TAB.CHEW PO SCH (09:47)
[2022-03-08] MEDS: METOPROLOL SUCCINATE 50 MG TAB.SR.24H (TOPROL XL) PO SCH (09:47)
[2022-03-08] MEDS: PANTOPRAZOLE SODIUM 40 MG/VIAL (PROTONIX) IVP SCH (09:47)
[2022-03-08] MEDS: predniSONE 20 MG TABLET PO SCH (09:49)
[2022-03-08] MEDS: APIXABAN 2.5 MG TABLET PO SCH ×2 (09:52→21:27)
[2022-03-08] MEDS: CEFEPIME 1 GM in D5W 50 ML IV SCH (10:05)
[2022-03-08 11:00] VITALS: BP_SYST 142
[2022-03-08] MEDS ORDERED: predniSONE 20 MG TABLET PO SCH (11:00)
[2022-03-08] MEDS ORDERED: HEPARIN SODIUM,PORCINE 5,000 UNITS/ML VIAL MC ONE (13:00)
[2022-03-08 15:40] VITALS: BP_SYST 127
[2022-03-08 16:00] VITALS: BP_SYST 145
--- NOTE | 2022-03-08 19:30 | NUR ---
Opening note Received report from day shift. Pt is awake lying in bed. No s/s of respiratory distress. Breathing even and unlabored on RA. Left IJ line intact saline lock. No c/o of pain. Fall and safety precautions in place with bed in lowest position, bed alarm on, and call light within reach
[2022-03-08 20:00] VITALS: BP_SYST 133
--- NOTE | 2022-03-08 21:25 | NUR ---
Assisted pt to ambulate to the bathroom w/ walker. Pt has steady gait
[2022-03-08 22:58] LABS: BILIRUBIN,URINE NEGATIVE (NEGATIVE); BLOOD, URINE 1+ (NEGATIVE); COLOR,URINE YELLOW (YELLOW); GLUCOSE,URINE NEGATIVE (NEGATIVE); KETONES,URINE NEGATIVE (NEGATIVE); LEUKOCYTE ESTERASE ,URINE 1+ (NEGATIVE); NITRITE, URINE NEGATIVE (NEGATIVE); PROTEIN URINE 1+ (NEGATIVE); UROBILINOGEN,URINE 0.2 (0.2-1.0)
[2022-03-08 22:59] LABS: CLARITY/URINE HAZY (CLEAR)
[2022-03-08 23:05] LABS: BACTERIA,URINE RARE /HPF (None Seen); MUCUS,URINE None Seen /LPF (None Seen); RBC,URINE 0-3 /HPF (0-3); WBC,URINE 0-3 /HPF (0-3)
--- NOTE | 2022-03-09 00:15 | NUR ---
Rounds Pt awake lying in bed on his cellphone. No s/s of acute distress. Fall and safety checks in place
[2022-03-09 01:25] VITALS: BP_SYST 127
[2022-03-09 06:50] LABS: BASOPHILS % (AUTO) 0.1 % (0.0-2.0); HEMATOCRIT 33.6 % (36-54); LYMPHOCYTES % (AUTO) 12.3 % (20.5-51.5); MEAN CORPUSCULAR VOLUME 82 fL (79.0-98.0); MONOCYTES # (AUTO) 0.7 K/uL (0.0-1.0); MONOCYTES % (AUTO) 8.3 % (1.7-9.3); NEUTROPHILS # (AUTO) 6.6 K/uL (1.8-7.7); NEUTROPHILS % (AUTO) 79.3 % (40.0-70.0); PLATELET COUNT (AUTO) 89 K/uL (130-430); RED BLOOD CELL COUNT(AUTO) 4.12 MIL/uL (4.2-6.2); RED CELL DISTRIBUTION WIDTH 16.9 % (9.0-15.0); WHITE BLOOD COUNT (AUTO) 8.4 K/uL (4.8-10.8)
--- NOTE | 2022-03-09 07:26 | NUR ---
Closing note Pt is awake lying in bed. No s/s of respiratory distress. Breathing even and unlabored on RA. Left IJ line intact saline lock. No c/o of pain. All needs met throughout shift. Fall and safety precautions in place with bed in lowest position, bed alarm on, and call light within reach
[2022-03-09 07:35] LABS: ALBUMIN 3.1 g/dL (3.4-4.8); CALCIUM 9.4 mg/dL (8.4-11.0); CREATININE 6.51 mg/dL (0.55-1.30); TOTAL BILIRUBIN 0.6 mg/dL (0.0-1.0)
[2022-03-09 08:00] VITALS: BP_SYST 136
[2022-03-09] MEDS: predniSONE 20 MG TABLET PO SCH (08:50)
[2022-03-09] MEDS: ASPIRIN 81 MG TAB.CHEW PO SCH (08:51)
[2022-03-09] MEDS: METOPROLOL SUCCINATE 50 MG TAB.SR.24H (TOPROL XL) PO SCH (08:52)
[2022-03-09] MEDS: APIXABAN 2.5 MG TABLET PO SCH ×2 (08:54→21:02)
[2022-03-09] MEDS: PANTOPRAZOLE SODIUM 40 MG/VIAL (PROTONIX) IVP SCH (09:01)
[2022-03-09] MEDS: CEFEPIME 1 GM in D5W 50 ML IV SCH (09:04)
[2022-03-09 12:00] VITALS: BP_SYST 130; BP_SYST 132
--- NOTE | 2022-03-09 12:23 | NUR ---
PATIENT IS ABLE TO AMBULATE WITH SUPERVISION. HE IS SAFE TO AMBULATE WITH NURSING ASSISTANCE. AND DOES NOT NEED FURTHER PHYSICAL THERAPY IN THIS SETTING. RECOMMEND HOME HEALTH PT.
[2022-03-09 16:00] VITALS: BP_SYST 146
[2022-03-09] MEDS: DAPTOmycin 500 MG in NS 50 ML IV SCH (17:26)
--- NOTE | 2022-03-09 19:15 | NUR ---
OPENING NOTE/EDUCATION REPORT RECEIVED FROM DAYSHIFT NURSE. PATIENT RECEIVED LYING IN BED, AOX4, NO S/S OF ACUTE DISTRESS. BREATHING EVEN AND UNLABORED. HOB RAISED. IV SITE IS PATENT, NO SIGNS OF INFILTRATION OR INFECTION NOTED. SKIN WARM AND DRY TO TOUCH. DENIES PAIN. EDUCATED ON PROPER USE OF CALL LIGHT, PATIENT DEMONSTRATED BACK PROPER USE. INSTRUCTED TO CALL FOR ANY ASSISTANCE WHEN AMBULATING, PATIENT VERBALIZED UNDERSTANDING. CALL LIGHT WITH PATIENT. BED IS LOCKED AND AT LOWEST POSITION. WILL CONTINUE TO MONITOR.
[2022-03-09 20:00] VITALS: BP_SYST 138
--- NOTE | 2022-03-09 23:00 | NUR ---
ROUND PATIENT IN BED, RESTING. NO SIGNS OF DISCOMFORT. ALL NEEDS MET. SAFETY PRECAUTIONS IN PLACE. WILL CONTINUE TO MONITOR.
[2022-03-10 00:57] VITALS: BP_SYST 134
--- NOTE | 2022-03-10 03:12 | NUR ---
ROUND PATIENT IN BED, RESTING. NO SIGNS OF DISCOMFORT. ALL NEEDS MET. SAFETY PRECAUTIONS IN PLACE. WILL CONTINUE TO MONITOR.
--- NOTE | 2022-03-10 06:30 | NUR ---
CLOSING NOTE PATIENT IN BED, RESTING, NO S/S OF ACUTE DISTRESS. BREATHING EVEN AND UNLABORED. IV SITES PATENT, NO SIGNS OF INFILTRATION OR INFECTION NOTED. ALL NEEDS MET THROUGHOUT SHIFT. FALL, SAFETY PRECAUTIONS MAINTAINED THROUGHOUT SHIFT. WILL CONTINUE TO MONITOR UNTIL PATIENT CARE IS ENDORSED TO ONCOMING DAYSHIFT NURSE.
[2022-03-10 07:00] VITALS: BP_SYST 133
[2022-03-10 08:00] VITALS: BP_SYST 133
[2022-03-10] MEDS: APIXABAN 2.5 MG TABLET PO SCH ×2 (09:02→22:58)
[2022-03-10] MEDS: CEFEPIME 1 GM in D5W 50 ML IV SCH (09:03)
[2022-03-10] MEDS: PANTOPRAZOLE SODIUM 40 MG/VIAL (PROTONIX) IVP SCH (09:03)
[2022-03-10] MEDS: METOPROLOL SUCCINATE 50 MG TAB.SR.24H (TOPROL XL) PO SCH (09:04)
[2022-03-10] MEDS: predniSONE 20 MG TABLET PO SCH (09:04)
[2022-03-10] MEDS: ASPIRIN 81 MG TAB.CHEW PO SCH (09:04)
[2022-03-10] MEDS ORDERED: HEPARIN SODIUM,PORCINE 5,000 UNITS/ML VIAL MC ONE (11:15)
[2022-03-10 12:06] LABS: HEPATITIS A AB, IgM Negative (Negative); HEPATITIS B CORE AB, IgM Negative (Negative); HEPATITIS B SURFACE AG Negative (Negative)
[2022-03-10 12:07] VITALS: BP_SYST 122
[2022-03-10 16:09] VITALS: BP_SYST 107
--- NOTE | 2022-03-10 17:34 | NUR ---
Dietitian Recommendations * Continue Renal Standard diet * ONS Nepro BID * Encourage good PO intake * Adhere to pt preferences LP, MS, RD Please refer to Nutrition Assessment for details.
--- NOTE | 2022-03-10 17:50 | NUR ---
pt ABX d/c as per doctor orders. doctor informed of rash development and is aware. No orders at this time. Addendum: 03/10/22 at 1752 by Ursula Nicole RN RN Pt denies distress or pain Addendum: 03/10/22 at 1755 by Ursula Nicole RN RN doctor orders to given Benadryl PO
[2022-03-10] MEDS ORDERED: DIPHENHYDRAMINE HCL 12.5 MG/5 ML UDC PO ONE (18:00)
--- NOTE | 2022-03-10 19:30 | NUR ---
OPENING NOTES Received report from day nurse. Pt in bed chatting with other patient in room. Pt is AOx4, and denies pain. All antibiotics have been discontinued d/t rash all over body. Pt is in good spirits, Safety measures initiated.
[2022-03-10 20:00] VITALS: BP_SYST 131
--- NOTE | 2022-03-10 23:30 | NUR ---
PATIENT CARE Assisted patient with hygiene, partial bed bath, and changed all linens.
[2022-03-11] VITALS: BP_SYST 128
--- NOTE | 2022-03-11 07:15 | NUR ---
receive the pt from the shift supervisor film processing MANUEL Roy in a stable condition . no complain of pain no sign and symptoms of shortness of breath . will continue to monitor
[2022-03-11 08:00] VITALS: BP_SYST 141
[2022-03-11] MEDS: predniSONE 20 MG TABLET PO SCH (08:45)
[2022-03-11] MEDS: METOPROLOL SUCCINATE 50 MG TAB.SR.24H (TOPROL XL) PO SCH (08:46)
[2022-03-11] MEDS: ASPIRIN 81 MG TAB.CHEW PO SCH (08:47)
[2022-03-11] MEDS: PANTOPRAZOLE SODIUM 40 MG/VIAL (PROTONIX) IVP SCH (08:48)
[2022-03-11] MEDS: APIXABAN 2.5 MG TABLET PO SCH ×2 (08:51→20:23)
[2022-03-11] MEDS ORDERED: DOXYCYCLINE HYCLATE 100 MG CAPSULE PO ONE (10:15)
[2022-03-11 17:46] VITALS: BP_SYST 129
[2022-03-11 20:00] VITALS: BP_SYST 126
[2022-03-11] MEDS: DOXYCYCLINE HYCLATE 100 MG CAPSULE PO SCH (20:26)
--- NOTE | 2022-03-11 21:38 | NUR ---
Patient in bed. No acute distress noted. Will continue to monitor.
[2022-03-12] VITALS: BP_SYST 140
--- NOTE | 2022-03-12 07:14 | NUR ---
receive the pt from the retail shift leader RN Val in a stable condition . no complain of pain . no sign and symptoms of shortness of breath
[2022-03-12 08:00] VITALS: BP_SYST 141
--- NOTE | 2022-03-12 09:10 | NUR ---
the came and visited the patient
[2022-03-12] MEDS: ASPIRIN 81 MG TAB.CHEW PO SCH (09:39)
[2022-03-12] MEDS: APIXABAN 2.5 MG TABLET PO SCH (09:39)
[2022-03-12] MEDS: DOXYCYCLINE HYCLATE 100 MG CAPSULE PO SCH (09:39)
[2022-03-12] MEDS: predniSONE 20 MG TABLET PO SCH (09:40)
[2022-03-12] MEDS: PANTOPRAZOLE SODIUM 40 MG/VIAL (PROTONIX) IVP SCH (09:40)
[2022-03-12] MEDS: METOPROLOL SUCCINATE 50 MG TAB.SR.24H (TOPROL XL) PO SCH (09:50)
--- NOTE | 2022-03-12 10:30 | NUR ---
the hemodialysis nurse came and started soon the hemodialysis
--- NOTE | 2022-03-12 11:20 | NUR ---
order [id number] heparin for heparin flush of the hemodialysis site
[2022-03-12] MEDS ORDERED: HEPARIN SODIUM,PORCINE 5,000 UNITS/ML VIAL MC ONE ×2 (12:15)
--- NOTE | 2022-03-12 13:11 | NUR ---
gave the heparin to hemodialysis nurse to use to the port
[2022-03-12 14:27] VITALS: BP_SYST 142
--- NOTE | 2022-03-12 15:20 | NUR ---
MD De Leon discharge the pt . discharge teachings was done . remove the iv . gave the prescription . was brought to the lobby by a wheelchair in a stable condition to a waiting private car
== END 2022-03-12 18:28 | disposition home or self-care (01) | DRG 559 ==
LOC: SED 16:01 → STU 22:20 → SMU 03-10 15:42
PROVIDERS: ADMIT Internal Medicine; ATTEND Family Medicine
PROC: 5A1D70Z Performance of Urinary Filtration, Intermittent, Less than 6 Hours Per Day (ICD-10-PCS; 2022-03-06)
PROC: 4A10X4Z Monitoring of Central Nervous Electrical Activity, External Approach (ICD-10-PCS; principal; 2022-03-07)
PROC: 5A1D70Z Performance of Urinary Filtration, Intermittent, Less than 6 Hours Per Day (ICD-10-PCS; 2022-03-07)
PROC: 5A1D70Z Performance of Urinary Filtration, Intermittent, Less than 6 Hours Per Day (ICD-10-PCS; 2022-03-08)
PROC: 5A1D70Z Performance of Urinary Filtration, Intermittent, Less than 6 Hours Per Day (ICD-10-PCS; 2022-03-10)
PROC: 5A1D70Z Performance of Urinary Filtration, Intermittent, Less than 6 Hours Per Day (ICD-10-PCS; 2022-03-11)
PROC: 05HN33Z Insertion of Infusion Device into Left Internal Jugular Vein, Percutaneous Approach (ICD-10-PCS; 2022-03-11)
PROC: B544ZZA Ultrasonography of Left Jugular Veins, Guidance (ICD-10-PCS; 2022-03-11)
DX: T84.52XA Infection and inflammatory reaction due to internal left hip prosthesis, initial encounter (principal); G93.41 Metabolic encephalopathy; N17.0 Acute kidney failure with tubular necrosis; N18.6 End stage renal disease; E87.1 Hypo-osmolality and hyponatremia; I48.92 Unspecified atrial flutter; I24.8 Other forms of acute ischemic heart disease; F05 Delirium due to known physiological condition; I12.0 Hypertensive chronic kidney disease with stage 5 chronic kidney disease or end stage renal disease; I48.0 Paroxysmal atrial fibrillation; Z96.652 Presence of left artificial knee joint; Z20.822 Contact with and (suspected) exposure to COVID-19; Y83.1 Surgical operation with implant of artificial internal device as the cause of abnormal reaction of the patient, or of later complication, without mention of misadventure at the time of the procedure; E66.01 Morbid (severe) obesity due to excess calories; Z79.01 Long term (current) use of anticoagulants; Z88.0 Allergy status to penicillin; Y92.89 Other specified places as the place of occurrence of the external cause; Z99.2 Dependence on renal dialysis; Z86.718 Personal history of other venous thrombosis and embolism; Z85.51 Personal history of malignant neoplasm of bladder; Z79.899 Other long term (current) drug therapy; Z68.31 Body mass index [BMI] 31.0-31.9, adult
CPT/HCPCS: 36415; 70450-TC; 71045; 76376; 80053; 80061; 80074; 81000; 82009; 82140; 82550; 83605; 83735; 83880; 84439; 84443; 84484; 85025; 85610-TC; 85651-TC; 85730-TC; 86140; 87040; 87081; 90935; 90937; 93005; 93306; 95816; 96372; 96374; 96375; 97116-GP; 97530-GP; 99285; C9113; G0378; G0480; G0481; G0482; J0692; J0878; J1200; J1630; J1644; J2250; J7060; J7512; Q9967

== ENCOUNTER 2022-06-28 20:29 | Inpatient (IN) | payer OTHER, MEDICAID ==
[~2022-06-28] VITALS: Ht 190.5 cm; Wt 113.4 kg
[2022-06-28 20:37] VITALS: BP_SYST 139
[2022-06-28] MEDS ORDERED: DILTIAZEM HCL 60 MG TABLET PO ONE (20:45)
[2022-06-28] MEDS ORDERED: dilTIAZem HCL IVP 5 MG/ML VIAL IVP ONE (20:45)
--- NOTE | 2022-06-28 20:50 | NUR ---
CARMEN KEY PUNCH OPERATOR FROM HOME, PLACED INTO BED #1, ASSISTED INTO GOWN AND PLACED ON MONITOR, MD AT BEDSIDE FOR EXAM, INFORMED OF PLAN OF CARE AT THIS TIME. PATIENT IS A/O X4, DENIES ANY PAIN OR DISCOMFORT AT THIS TIME NO S/SOF ANY DISTRESS NOTED. PATIENT OFF UNIT AT THIS TIME FOR TEST, WILL MEDICATE PER ORDER ON RETURN TO UNIT.
--- NOTE | 2022-06-28 21:08 | NUR ---
BEDSIDE EKG IN PROGRESS FOR MD REVIEW.
[2022-06-28 21:26] LABS: BASOPHILS % (AUTO) 0.7 % (0.0-2.0); EOSINOPHILS % (AUTO) 0.3 % (0.0-4.0); HEMATOCRIT 27.8 % (36-54); HEMOGLOBIN 9.4 g/dL (14.0-18.0); LYMPHOCYTES # (AUTO) 1.1 K/uL (1.0-5.5); MEAN CORPUSCULAR HEMOGLOBIN 30 pg (27-31); MEAN CORPUSCULAR HGB CONC 34 % (32-36); MEAN CORPUSCULAR VOLUME 88 fL (79.0-98.0); MONOCYTES # (AUTO) 0.5 K/uL (0.0-1.0); MONOCYTES % (AUTO) 10.2 % (1.7-9.3); NEUTROPHILS # (AUTO) 3.4 K/uL (1.8-7.7); NEUTROPHILS % (AUTO) 66.8 % (40.0-70.0); RED BLOOD CELL COUNT(AUTO) 3.16 MIL/uL (4.2-6.2); RED CELL DISTRIBUTION WIDTH 14.3 % (9.0-15.0); WHITE BLOOD COUNT (AUTO) 5.1 K/uL (4.8-10.8)
[2022-06-28 21:48] LABS: ANION GAP 9 (5-15); CALCIUM 9.2 mg/dL (8.4-11.0); CHLORIDE 101 mmol/L (98-107); CREATININE 1.42 mg/dL (0.55-1.30); GLUCOSE 123 mg/dL (70-99); UREA NITROGEN, BLOOD 16 mg/dL (8-21)
[2022-06-28 21:53] LABS: GFR AFRICAN AMERICAN 64 mL/min (>90)
[2022-06-28 22:01] LABS: ALANINE AMINOTRANSFERASE 12 U/L (12-78); ALBUMIN 3.2 g/dL (3.4-4.8); ASPARTATE AMINOTRANSFERASE 17 U/L (10-37); TOTAL BILIRUBIN 0.8 mg/dL (0.0-1.0)
--- NOTE | 2022-06-28 22:05 | NUR ---
EDMD AWARE OF TROP 122
[2022-06-28 22:30] LABS: INR 1.2 (0.80-1.20); PROTHROMBIN TIME 11.6 SECS (9.5-12.5)
--- NOTE | 2022-06-28 22:33 | NUR ---
AT BEDSIDE, UPDATED ON PLAN OF CARE.
[2022-06-28 23:35] LABS: PLATELET COUNT (AUTO) 79 K/uL (130-430)
--- NOTE | 2022-06-28 23:52 | NUR ---
PATIENT AND MADE AWARE THAT PATIENT WILL BE ADMITTED TO THE HOSPITAL, AWAITING ROOM ASSIGNMENT.
[2022-06-29] MEDS: 0.45% NACL 1,000 ML IV SCH ×2 (00:45→13:44)
--- NOTE | 2022-06-29 00:53 | NUR ---
Admit bed requested Patient will be admitted to care of . Admitted to TELE unit. Diagnosis : AFLUTTER Inpatient (Yes or No) Y Observation (Yes or No) N Orientation concerns or request close to nursing station (Yes or No) N Covid Status : PENDING From Home (Yes or if No enter name of facility) Y Requires Dialysis (Yes or No) N Med Rec Completed (Yes of No) PENDING
--- NOTE | 2022-06-29 04:03 | NUR ---
PATIENT RESTING IN BED, PLACED BACK ON MONITOR, EASY TO AROUSE WITHOUT ANY C/O PAIN OR DISCOMFORT AT THIS TIME. ASSISTED INTO POSITION OF COMFORT AND CONTINUES TO AWAIT ROOM ASSIGNMENT. IVF INFUSING PER ORDER VIA THE PUMP.SIDE RAILS REMAIN UP WILL CONTINNUE TO MONITOR.
--- NOTE | 2022-06-29 04:28 | NUR ---
O2 APPLIED AT THIS TIME PER ORDER.
--- NOTE | 2022-06-29 05:52 | NUR ---
SLEEPING,EASY TO AROUSE,DENIES ANY PAIN OR DISCOMFORT AT THIS TIME. NO S/S OF ANY DISTRESS NOTE. IVF PER ORDER, NO S/S OF INFILTRATE AT SITE. SIDE RAILS REMAIN UP, WILL CONTINUE TO MONITOR.
--- NOTE | 2022-06-29 08:01 | NUR ---
BREAKFAST OFFERED TO PT.
[2022-06-29 08:10] LABS: EOSINOPHILS % (AUTO) 0.8 % (0.0-4.0); HEMATOCRIT 28.8 % (36-54); HEMOGLOBIN 9.6 g/dL (14.0-18.0); LYMPHOCYTES # (AUTO) 1.4 K/uL (1.0-5.5); LYMPHOCYTES % (AUTO) 33.9 % (20.5-51.5); MEAN CORPUSCULAR HEMOGLOBIN 29 pg (27-31); MEAN CORPUSCULAR HGB CONC 33 % (32-36); MEAN CORPUSCULAR VOLUME 88 fL (79.0-98.0); MONOCYTES # (AUTO) 0.5 K/uL (0.0-1.0); MONOCYTES % (AUTO) 12.1 % (1.7-9.3); NEUTROPHILS # (AUTO) 2.1 K/uL (1.8-7.7); NEUTROPHILS % (AUTO) 52.2 % (40.0-70.0); RED BLOOD CELL COUNT(AUTO) 3.27 MIL/uL (4.2-6.2); RED CELL DISTRIBUTION WIDTH 14.5 % (9.0-15.0)
[2022-06-29 08:11] LABS: WHITE BLOOD COUNT (AUTO) 4.1 K/uL (4.8-10.8)
[2022-06-29 08:30] LABS: ALBUMIN 3.1 g/dL (3.4-4.8); CALCIUM 8.9 mg/dL (8.4-11.0); CREATININE 1.31 mg/dL (0.55-1.30); TOTAL BILIRUBIN 0.9 mg/dL (0.0-1.0)
--- NOTE | 2022-06-29 08:48 | NUR ---
CRTICAL TAKEN FROM LAB, PRIMARY RN RUTH ANN NELSON. HE HAS PRIMARY MD PAGD TO NOTIFY
[2022-06-29] MEDS: METOPROLOL SUCCINATE 50 MG TAB.SR.24H (TOPROL XL) PO SCH ×2 (09:45→21:53)
[2022-06-29] MEDS: APIXABAN 2.5 MG TABLET PO SCH ×2 (09:46→21:54)
--- NOTE | 2022-06-29 11:30 | NUR ---
PT GOT BED 126A. PT WAS SENT TO FLOOR IN [facility] IN STABLE CONDITION.
[2022-06-29 12:36] LABS: PLATELET COUNT (AUTO) 73 K/uL (130-430)
--- NOTE | 2022-06-29 14:49 | NUR ---
CONSULTATION PAGED REASON FOR CONSULTATION THROMBOCYTOPENIA WAS CONSULT CALED?Y PERSON WHO WAS NOTIFIED:CHEPE CONSULTING PHYSICIAN:MARCIO FITZPATRICK VERIFYING MACHINE OPERATOR SPECIALTY:ONCOLGY/HEMATOLOGY VERIFYING MACHINE OPERATOR PHONE [phone]: REQUESTING PHYSICIAN:DALE WILLIAMSON
[2022-06-29 16:15] VITALS: BP_SYST 132
--- NOTE | 2022-06-29 16:17 | NUR ---
CONSULTATION PAGED/CALLED Reason for Consultation: [] COVID 19 Person Who was Notified: [] FLAVIO Consulting Physician: [] DR STANLEY Sculpture Conservator Specialty: [] ID Ordering Physician: [] DR BAKER
--- NOTE | 2022-06-29 18:00 | NUR ---
admitted 67 years old male from ER,A/Ox3,vss,on O2 2L/NC,sat 97% no respiratory distress observed,IVF continue infusing,a-flutter per monitoring coordinator, notified and also awared of elevated troponin. on droplet precaution d/t covid positive,both patient and christianne notified and awared of covid status.needs attended,call light & personal items within pt reach safety maintained.continue to monitor pt.
[2022-06-29 19:00] VITALS: BP_SYST 124
--- NOTE | 2022-06-29 19:15 | NUR ---
change of shift.pt.presents quiescent affect;calm,resting.new admission per day shift.pt.presents isolation status;droplet:covid 19+status.pt.presents iv access location;lt.wrist intact;patent.general status stable.respiratory status stable unlabored@room air.o2-sat%=98%.call light/telephone w/in access of the pt.
[2022-06-29 20:00] VITALS: BP_SYST 124
--- NOTE | 2022-06-29 20:00 | NUR ---
pt.assessed.v/s assessed values wnl.o2-sat%=98%.no c/o pain,nausea.iv access intact.pt.apprised that snacks/beverages are available w/in the shift.no requests posited@this hour.pt.capable to reposition self.call light/telephone w/in access of the pt.
--- NOTE | 2022-06-29 21:00 | NUR ---
2100p medications administered.pt.capable to ingest the po medications w/out difficulty.no c/o pain,nausea.call light/telephone w/in access of the pt.
[2022-06-29] MEDS: MAGNESIUM OXIDE 400 MG TABLET PO SCH (21:51)
[2022-06-29] MEDS: ASCORBIC ACID 500 MG TABLET PO SCH (21:52)
--- NOTE | 2022-06-29 22:00 | NUR ---
pt.assessed.pt.quiescent.o2-sa%per flacc pain mgx pt.absent facial grimaces/body posturing.pt.capbleto reoipnsel;[id number]/telehpo w/inaccess of thpt.
[2022-06-30] VITALS (8 sets, daily range): BP systolic 125–149
--- NOTE | 2022-06-30 | NUR ---
pt.assessed.v/s assessed values wnl.no c/opin nausew,o2-sat%$=98%.no requests posited@this hour.pt.capable to reposition self.call light/telephone w/in access of the pt.
--- NOTE | 2022-06-30 02:00 | NUR ---
pt.assessed.pt.quiescent.o2-sat%=98%per flacc pain mgx pt.absent facial grimaces/body posturing.pt.capable to reposition self.call light/telephone w/in access of the pt.
--- NOTE | 2022-06-30 04:00 | NUR ---
pt.assessed.pt.quiescent.per flacc pain mgx pt.absent facial grimaces/body posturing.pt.capable to reposition self. call light/telephone w/in access of the pt.
--- NOTE | 2022-06-30 06:18 | NUR ---
pt assessed.p.quiescent perf flacc pain mgx pt.absent facial grimaces/body posturing.pt.capable to reposition self.02-sat%=96%. callight/telephone w/inacess ogf thpt.
[2022-06-30 07:48] LABS: BASOPHILS # (AUTO) 0.1 K/uL (0.0-0.2); BASOPHILS % (AUTO) 1.4 % (0.0-2.0); EOSINOPHILS # (AUTO) 0.1 K/uL (0.0-0.4); EOSINOPHILS % (AUTO) 1.6 % (0.0-4.0); HEMATOCRIT 31.9 % (36-54); HEMOGLOBIN 10.5 g/dL (14.0-18.0); LYMPHOCYTES # (AUTO) 1.4 K/uL (1.0-5.5); LYMPHOCYTES % (AUTO) 33.8 % (20.5-51.5); MEAN CORPUSCULAR HEMOGLOBIN 29 pg (27-31); MEAN CORPUSCULAR HGB CONC 33 % (32-36); MEAN CORPUSCULAR VOLUME 89 fL (79.0-98.0); MONOCYTES # (AUTO) 0.3 K/uL (0.0-1.0); MONOCYTES % (AUTO) 7.8 % (1.7-9.3); NEUTROPHILS # (AUTO) 2.3 K/uL (1.8-7.7); NEUTROPHILS % (AUTO) 55.4 % (40.0-70.0); PLATELET COUNT (AUTO) 77 K/uL (130-430); RED CELL DISTRIBUTION WIDTH 14.6 % (9.0-15.0); WHITE BLOOD COUNT (AUTO) 4.2 K/uL (4.8-10.8)
[2022-06-30 08:24] LABS: CALCIUM 9.1 mg/dL (8.4-11.0); CREATININE 1.42 mg/dL (0.55-1.30)
[2022-06-30 08:40] LABS: INR 1.1 (0.80-1.20); PROTHROMBIN TIME 11.2 SECS (9.5-12.5)
--- NOTE | 2022-06-30 09:00 | NUR ---
Call received from lat Trop 111, trending down. Will inform Dr. Lopez. [id number] Informed MD regarding trending troponin. Will continue to monitor pt. [phone] Call from Lab from [facility]. Ddimer 1390. Will inform Dr. De Leon. [id number] Lopez regarding Didimer 1390. Awaiting for call back.
[2022-06-30] MEDS: METOPROLOL SUCCINATE 50 MG TAB.SR.24H (TOPROL XL) PO SCH (09:08)
[2022-06-30] MEDS: ASCORBIC ACID 500 MG TABLET PO SCH (09:10)
[2022-06-30] MEDS: CHOLECALCIFEROL (VITAMIN D3) 5,000 UNIT TABLET PO SCH (09:10)
[2022-06-30] MEDS: MAGNESIUM OXIDE 400 MG TABLET PO SCH (09:10)
[2022-06-30] MEDS: APIXABAN 2.5 MG TABLET PO SCH (09:26)
--- NOTE | 2022-06-30 12:21 | NUR ---
SPOKE TO DR. VILLATORO FOR UPDATE AND OBTAIN ORDERS.
[2022-06-30] MEDS: 0.45% NACL 1,000 ML IV SCH ×2 (15:15→15:16)
[2022-06-30] MEDS: AZITHROMYCIN 500 MG in NS 250 ML IV SCH (15:16)
--- NOTE | 2022-06-30 17:00 | NUR ---
Dr. De Leon aware of DDimer 1390. No new orders received. Will continue to monitor pt.
[2022-06-30] MEDS: BUDESONIDE 0.5 MG/2 ML AMPUL.NEB INH SCH (19:47)
--- NOTE | 2022-06-30 23:38 | NUR ---
CRITICAL LAB Lab called at 2338 to notify that results of second COVID test were POSITIVE. Patient is already isolated for Covid and MD has been notified. Nurse Ankita took the call and relayed message to me.
[2022-07-01] MEDS: MAGNESIUM OXIDE 400 MG TABLET PO SCH ×2 (03:00→08:53)
[2022-07-01] MEDS: ASCORBIC ACID 500 MG TABLET PO SCH ×2 (03:00→08:54)
[2022-07-01] MEDS: APIXABAN 2.5 MG TABLET PO SCH ×2 (03:00→08:58)
[2022-07-01] MEDS: METOPROLOL SUCCINATE 50 MG TAB.SR.24H (TOPROL XL) PO SCH ×2 (03:00→08:54)
[2022-07-01] MEDS: BUDESONIDE 0.5 MG/2 ML AMPUL.NEB INH SCH ×2 (07:54→20:29)
--- NOTE | 2022-07-01 08:20 | NUR ---
AM ASSESSMENT PT ALERT, AND ABLE TO VERBALIZE BASIC NEEDS, ISOLATION PRECAUTION OBSERVED, COVID POSITIVE. VITAL SIGNS OBTAINED, IN NORMAL RANGE, DENIES BODY DISCOMFORTS.
[2022-07-01] MEDS: CHOLECALCIFEROL (VITAMIN D3) 5,000 UNIT TABLET PO SCH (08:54)
[2022-07-01 09:00] VITALS: BP_SYST 125
[2022-07-01 09:11] LABS: BASOPHILS % (AUTO) 0.9 % (0.0-2.0); EOSINOPHILS # (AUTO) 0.1 K/uL (0.0-0.4); EOSINOPHILS % (AUTO) 1.1 % (0.0-4.0); HEMATOCRIT 29.6 % (36-54); LYMPHOCYTES # (AUTO) 1.6 K/uL (1.0-5.5); LYMPHOCYTES % (AUTO) 34.6 % (20.5-51.5); MEAN CORPUSCULAR HEMOGLOBIN 29 pg (27-31); MEAN CORPUSCULAR HGB CONC 34 % (32-36); MEAN CORPUSCULAR VOLUME 87 fL (79.0-98.0); MONOCYTES # (AUTO) 0.4 K/uL (0.0-1.0); MONOCYTES % (AUTO) 7.6 % (1.7-9.3); NEUTROPHILS # (AUTO) 2.6 K/uL (1.8-7.7); NEUTROPHILS % (AUTO) 55.8 % (40.0-70.0); PLATELET COUNT (AUTO) 78 K/uL (130-430); RED BLOOD CELL COUNT(AUTO) 3.42 MIL/uL (4.2-6.2); RED CELL DISTRIBUTION WIDTH 13.9 % (9.0-15.0); WHITE BLOOD COUNT (AUTO) 4.7 K/uL (4.8-10.8)
[2022-07-01 09:46] LABS: TOTAL IRON BIND. CAPACITY 201 ug/dL (250-450)
[2022-07-01 10:50] VITALS: BP_SYST 135
[2022-07-01 11:52] VITALS: BP_SYST 135
[2022-07-01] MEDS: 0.45% NACL 1,000 ML IV SCH (14:02)
[2022-07-01] MEDS: AZITHROMYCIN 500 MG in NS 250 ML IV SCH (14:03)
--- NOTE | 2022-07-01 16:30 | NUR ---
NURSING PT SEEN GOING BACK TO BED, IV REMAINS IN HIS LEFT HAND, IVF 1/2 NS AT 75 ML PER HR.
[2022-07-01 17:53] VITALS: BP_SYST 132
[2022-07-01 22:31] VITALS: BP_SYST 122
[2022-07-02] MEDS: BUDESONIDE 0.5 MG/2 ML AMPUL.NEB INH SCH ×2 (07:14→19:00)
[2022-07-02] MEDS: 0.45% NACL 1,000 ML IV SCH ×3 (07:30→20:04)
[2022-07-02 09:24] VITALS: BP_SYST 118
[2022-07-02] MEDS: ASCORBIC ACID 500 MG TABLET PO SCH ×2 (09:27→20:50)
[2022-07-02] MEDS: APIXABAN 2.5 MG TABLET PO SCH ×2 (09:30→20:53)
[2022-07-02] MEDS: METOPROLOL SUCCINATE 50 MG TAB.SR.24H (TOPROL XL) PO SCH ×2 (09:32→20:52)
[2022-07-02] MEDS: MAGNESIUM OXIDE 400 MG TABLET PO SCH ×2 (09:33→20:50)
[2022-07-02 10:47] VITALS: BP_SYST 124
--- NOTE | 2022-07-02 12:00 | NUR ---
pt without any s/s of distress, resting quietly in bed, denies any needs at this time.
[2022-07-02 12:06] LABS: FOLATE (FOLIC ACID) >20.0 ng/mL (>3.0)
--- NOTE | 2022-07-02 14:32 | NUR ---
Dietitian Recommendations * 2 gm Na diet w/ Ensure TID (ONS yields 1050 kcal/day, 60 gm protein/day) * Encourage good PO intakes LP, MS, RD Please refer to Nutrition Assessment for details. Addendum: 07/02/22 at [address] Amended: Links added.
[2022-07-02] MEDS: CHOLECALCIFEROL (VITAMIN D3) 5,000 UNIT TABLET PO SCH (16:00)
[2022-07-02] MEDS: AZITHROMYCIN 500 MG in NS 250 ML IV SCH (16:01)
[2022-07-02 16:03] VITALS: BP_SYST 148
--- NOTE | 2022-07-02 20:00 | NUR ---
Patient alert/oriented x4 discussed plan of care medication indication and side effect , fluid hydration , safety fall precaution initiated , needs attended.
[2022-07-02 21:45] VITALS: BP_SYST 128
--- NOTE | 2022-07-03 | NUR ---
PATIENT RESTING: Patient resting quietly. No acute distress noted. Vital signs within normal range, telemetry atrial flutter controlled
[2022-07-03 00:02] VITALS: BP_SYST 128
[2022-07-03 00:48] VITALS: BP_SYST 152
[2022-07-03] MEDS: BUDESONIDE 0.5 MG/2 ML AMPUL.NEB INH SCH ×2 (06:23→19:00)
[2022-07-03 06:42] LABS: BASOPHILS % (AUTO) 0.8 % (0.0-2.0); EOSINOPHILS # (AUTO) 0.1 K/uL (0.0-0.4); EOSINOPHILS % (AUTO) 1.1 % (0.0-4.0); HEMATOCRIT 28.5 % (36-54); HEMOGLOBIN 9.7 g/dL (14.0-18.0); LYMPHOCYTES # (AUTO) 1.8 K/uL (1.0-5.5); LYMPHOCYTES % (AUTO) 29.5 % (20.5-51.5); MEAN CORPUSCULAR HEMOGLOBIN 29 pg (27-31); MEAN CORPUSCULAR HGB CONC 34 % (32-36); MEAN CORPUSCULAR VOLUME 86 fL (79.0-98.0); MONOCYTES # (AUTO) 0.4 K/uL (0.0-1.0); MONOCYTES % (AUTO) 6.9 % (1.7-9.3); NEUTROPHILS # (AUTO) 3.7 K/uL (1.8-7.7); NEUTROPHILS % (AUTO) 61.7 % (40.0-70.0); PLATELET COUNT (AUTO) 91 K/uL (130-430); RED BLOOD CELL COUNT(AUTO) 3.31 MIL/uL (4.2-6.2); RED CELL DISTRIBUTION WIDTH 13.9 % (9.0-15.0)
[2022-07-03 07:04] LABS: ALBUMIN 3.2 g/dL (3.4-4.8); CALCIUM 9.1 mg/dL (8.4-11.0); CREATININE 1.42 mg/dL (0.55-1.30); TOTAL BILIRUBIN 0.5 mg/dL (0.0-1.0)
[2022-07-03] MEDS: CHOLECALCIFEROL (VITAMIN D3) 5,000 UNIT TABLET PO SCH (09:51)
[2022-07-03] MEDS: MAGNESIUM OXIDE 400 MG TABLET PO SCH ×2 (09:51→22:26)
[2022-07-03] MEDS: ASCORBIC ACID 500 MG TABLET PO SCH ×2 (09:51→22:25)
[2022-07-03 09:54] VITALS: BP_SYST 137
[2022-07-03] MEDS: METOPROLOL SUCCINATE 50 MG TAB.SR.24H (TOPROL XL) PO SCH ×2 (09:57→22:32)
--- NOTE | 2022-07-03 10:00 | NUR ---
PT RESTING QUIETLY NO S/S OF DISTRESS. WILL CLEAN UP LATER THIS AFTER . WILL CONTINUE TO MONITOR PATIENT
[2022-07-03] MEDS: APIXABAN 2.5 MG TABLET PO SCH ×2 (10:02→22:24)
[2022-07-03 11:52] VITALS: BP_SYST 130
[2022-07-03 16:44] VITALS: BP_SYST 126
[2022-07-03] MEDS: AZITHROMYCIN 500 MG in NS 250 ML IV SCH (19:16)
[2022-07-03 20:00] VITALS: BP_SYST 138
--- NOTE | 2022-07-03 20:30 | NUR ---
OPENING Patient resting in bed, unlabored breathing on room air. AOx4. IV fluids infusing. Dr. Lopez saw patient at bedside. Safety and isolation precautions in place.
[2022-07-03] MEDS: 0.45% NACL 1,000 ML IV SCH ×2 (23:33→23:54)
--- NOTE | 2022-07-04 | NUR ---
ROUNDS Patient resting in bed, no distress noted. Encouraged to call for help ambulating. Patient's personal cane at bedside. Uses urinal. Safety precautions in place.
[2022-07-04 03:57] VITALS: BP_SYST 133
[2022-07-04] MEDS: BUDESONIDE 0.5 MG/2 ML AMPUL.NEB INH SCH (07:00)
--- NOTE | 2022-07-04 07:30 | NUR ---
CLOSING Patient stable through night, no distress noted, no complaint of pain. Safety precautions in place. Endorsed to oncoming nurse.
[2022-07-04 09:00] LABS: FERRITIN 451 ng/mL (30-400)
[2022-07-04 09:24] VITALS: BP_SYST 125
[2022-07-04] MEDS: CHOLECALCIFEROL (VITAMIN D3) 5,000 UNIT TABLET PO SCH (13:00)
[2022-07-04] MEDS: MAGNESIUM OXIDE 400 MG TABLET PO SCH (13:01)
[2022-07-04] MEDS: ASCORBIC ACID 500 MG TABLET PO SCH (13:01)
[2022-07-04] MEDS: METOPROLOL SUCCINATE 50 MG TAB.SR.24H (TOPROL XL) PO SCH (13:01)
[2022-07-04] MEDS: APIXABAN 2.5 MG TABLET PO SCH (13:04)
[2022-07-04] MEDS: 0.45% NACL 1,000 ML IV SCH (13:16)
[2022-07-04] MEDS: AZITHROMYCIN 500 MG in NS 250 ML IV SCH (16:10)
== END 2022-07-04 18:00 | disposition home or self-care (01) | DRG 177 ==
LOC: SED 20:29 → STU 23:29
PROVIDERS: ADMIT Family Medicine; ATTEND Family Medicine
DX: U07.1 COVID-19 (principal); J12.82 Pneumonia due to coronavirus disease 2019; N18.6 End stage renal disease; I48.92 Unspecified atrial flutter; D68.59 Other primary thrombophilia; I12.0 Hypertensive chronic kidney disease with stage 5 chronic kidney disease or end stage renal disease; M17.10 Unilateral primary osteoarthritis, unspecified knee; M16.9 Osteoarthritis of hip, unspecified; I48.91 Unspecified atrial fibrillation; D69.6 Thrombocytopenia, unspecified; Z88.0 Allergy status to penicillin; Z86.718 Personal history of other venous thrombosis and embolism; Z79.01 Long term (current) use of anticoagulants; Z85.51 Personal history of malignant neoplasm of bladder
CPT/HCPCS: 36415; 70450-TC; 71045; 76376; 76700-TC; 80048; 80053; 82550; 82607; 82728; 82746; 83540; 83550; 83605; 83735; 83880; 84484; 85025; 85379; 85610-TC; 85730-TC; 86140; 93005; 94640; 94760; 96374; 99285; G0378; J0456; J3490; J7050; J7120; J7626; U0003

== ENCOUNTER 2022-07-09 11:51 | Emergency (ER) | payer OTHER, MEDICAID ==
[~2022-07-09] VITALS: Ht 190.5 cm; Wt 104.8 kg
[2022-07-09 12:17] VITALS: BP_SYST 134
[2022-07-09] MEDS ORDERED: ONDANSETRON 4 MG ODT TAB PO ONE (12:30)
[2022-07-09 12:45] LABS: BASOPHILS % (AUTO) 0.6 % (0.0-2.0); EOSINOPHILS % (AUTO) 0.6 % (0.0-4.0); HEMATOCRIT 33.2 % (36-54); LYMPHOCYTES # (AUTO) 1.4 K/uL (1.0-5.5); LYMPHOCYTES % (AUTO) 18.5 % (20.5-51.5); MEAN CORPUSCULAR HEMOGLOBIN 29 pg (27-31); MEAN CORPUSCULAR HGB CONC 33 % (32-36); MEAN CORPUSCULAR VOLUME 88 fL (79.0-98.0); MONOCYTES # (AUTO) 0.5 K/uL (0.0-1.0); MONOCYTES % (AUTO) 6.8 % (1.7-9.3); NEUTROPHILS # (AUTO) 5.4 K/uL (1.8-7.7); NEUTROPHILS % (AUTO) 73.5 % (40.0-70.0); PLATELET COUNT (AUTO) 134 K/uL (130-430); RED BLOOD CELL COUNT(AUTO) 3.76 MIL/uL (4.2-6.2); RED CELL DISTRIBUTION WIDTH 13.7 % (9.0-15.0); WHITE BLOOD COUNT (AUTO) 7.4 K/uL (4.8-10.8)
[2022-07-09 12:56] LABS: ACETONE, SERUM NEGATIVE (NEGATIVE)
[2022-07-09 13:00] LABS: ANION GAP 8 (5-15); CALCIUM 9.8 mg/dL (8.4-11.0); CHLORIDE 101 mmol/L (98-107); CREATININE 1.55 mg/dL (0.55-1.30); GLUCOSE 104 mg/dL (70-99); UREA NITROGEN, BLOOD 24 mg/dL (8-21)
[2022-07-09 13:03] LABS: ALANINE AMINOTRANSFERASE 15 U/L (12-78); ALBUMIN 3.9 g/dL (3.4-4.8); AMYLASE 49 U/L (0-100); ASPARTATE AMINOTRANSFERASE 17 U/L (10-37); LACTATE DEHYDROGENASE 166 U/L (85-227); LIPASE 141 U/L (73-393); TOTAL BILIRUBIN 1.1 mg/dL (0.0-1.0)
[2022-07-09 13:04] LABS: C-REACTIVE PROTEIN QUANT < 0.2 mg/dL (0-0.5)
[2022-07-09] MEDS ORDERED: ONDA-8 TL (14:01)
[2022-07-09 15:45] VITALS: BP_SYST 134
--- NOTE | 2022-07-09 16:05 | NUR ---
Pt brought by self, A&Ox4, pt presents to ER with N/V and abdominal discomfort, skin pink and warm, cap refill <3, VSS.
--- NOTE | 2022-07-09 16:10 | NUR ---
Dr Salazar evaluating patient at bedside
--- NOTE | 2022-07-09 16:20 | NUR ---
Patient given written and verbal discharge instructions and verbalizes understanding. ER MD discussed with patient the results and treatment provided. Patient in stable condition. ID arm band removed. Rx of Amoxicillin and Ibuprofen given. Patient educated on pain management and to follow up with PMD. Pain Scale 2/10 Opportunity for questions provided and answered. Medication side effect fact sheet provided.
== END 2022-07-09 16:20 | disposition home or self-care (01) ==
LOC: SED 11:51
DX: R11.2 Nausea with vomiting, unspecified (principal); R10.9 Unspecified abdominal pain; I11.0 Hypertensive heart disease with heart failure; I50.9 Heart failure, unspecified; Z88.0 Allergy status to penicillin; Z79.899 Other long term (current) drug therapy
CPT/HCPCS: 99284; 74176; 80053; 82009; 82150; 83615; 83690; 85025; 86140; 36415; 76376; 83605; Q0162